=== PATIENT | male | born 1950 | race Caucasian/White ===

== ENCOUNTER 2019-12-21 23:53 | Inpatient (IN) | payer MEDICARE, OTHER ==
[~2019-12-21] VITALS: Ht 160 cm; Wt 71.3 kg
[~2019-12-21 23:53] MED LIST: CEFTIN500 MG PO; IPRATROPIUM BROM3 M1 IH; NICODERM C14 MG/PATC TD; PRINZIDE 12.5 M1 TA1 PO; VALIUM 5MG T5 MG/TAB PO; ZOCOR 40MG40 MG PO
[2019-12-22] VITALS (167 sets, daily range): BP systolic 103–139; BP diastolic 55–85; PULSE 90–105; TEMP 97.5–99; O2SAT 79–100
--- NOTE | 2019-12-22 00:31 | NUR ---
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 AWAITING ARRIVAL OF PT TO ICU 5.
--- NOTE | 2019-12-22 01:25 | NUR ---
PT ARRIVES BY EMS ON [facility]. TRANSFERED TO ICU BED. PT ON RA. PT REQUESTS TO USE BSC, X2 ASSIST, NOTEABLE WEAKNESS. PLACED ON BEDSIDE CONTINUOUS MONITOR. CALL LIGHT EDUCATION GIVEN, VERBALIZED UNDERSTANDING. PT ASSISTED INTO BED. NOTED WITH MOVEMENT PT STARTS HAVING BRIGHT RED BLOOD COMING FROM RECTUM. JEFFREY FRANKLIN NOTIFIED.
[2019-12-22] MEDS ORDERED: LACTULOSE10 GM/153 PO (01:43)
[2019-12-22] MEDS ORDERED: LASIX 40MG TABL40 MG PO (01:44)
[2019-12-22] MEDS ORDERED: K-DUR20 MEQ PO (01:45)
--- NOTE | 2019-12-22 02:15 | NUR ---
JEFFREY FRANKLIN AT BEDSIDE FOR ASSESSMENT AND TO DISCUSS POC WITH PT.
[2019-12-22 03:08] LABS: COLLECTION METHOD CLEAN CATCH
[2019-12-22 03:16] LABS: HEMATOCRIT 24.8 % (42.0-52.0); HEMOGLOBIN 8.8 g/dl (13.5-18.0)
[2019-12-22 03:29] LABS: ALCOHOL(ethanol),MEDICAL < 10 mg/dL; PHOSPHOROUS 4.1 mg/dL (2.5-4.5)
[2019-12-22 03:32] LABS: TRICYCLIC ANTIDEPRESS URINE NEGATIVE
[2019-12-22 03:43] LABS: HYALINE CAST >12 /lpf; MUCOUS Present /lpf; PH 5 (5-8); SQUAMOUS EPITHELIAL None Seen /hpf; URINE APPEARANCE Hazy; URINE BACTERIA None Seen /hpf; URINE BILIRUBIN Positive (NEGATIVE); URINE BLOOD Negative (NEGATIVE); URINE COLOR Amber; URINE GLUCOSE Negative (NEGATIVE); URINE KETONE Negative (NEGATIVE); URINE LEUKOCYTE ESTERASE Negative (NEGATIVE); URINE NITRATE Negative (NEGATIVE); URINE PROTEIN(semi-quant) Negative (NEGATIVE); URINE RBC 0-2 /hpf; URINE UROBILINOGEN >=4.0 mg/dL (NEGATIVE)
[2019-12-22 06:28] LABS: BASO % 0.1 % (0.0-2.0); EOS % 0.1 % (0-4.0); GRAN % 82.4 % (42.2-75.2); LYMPH % 8.1 % (20.0-51.0); MEAN CELL VOLUME 114 fl (80.0-100.0); MEAN CORPUSCULAR HGB CONC 36 g/dl (33.0-37.0); MEAN PLATELET VOLUME 9.9 fl (7.4-10.4); MONO % 8.1 % (1.7-9.3); PLATELET COUNT 148 K/mm3 (130-400); RED BLOOD COUNT 2.05 M/mm3 (4.20-5.60); REDCELL DISTRIBUTION WIDTH-CV 16.4 % (11.5-14.5)
[2019-12-22 06:29] LABS: HEMATOCRIT 23.4 % (42.0-52.0); HEMOGLOBIN 8.3 g/dl (13.5-18.0); MEAN CORPUSCULAR HEMOGLOBIN 40 pg (27.0-31.0)
[2019-12-22 06:33] LABS: ALBUMIN 2.7 gm/dL (3.5-5.0); CALCIUM 7.1 mg/dL (8.4-10.2); CREATININE, serum 1.45 (0.66-1.25); MAGNESIUM 2.3 mg/dL (1.6-2.3); POTASSIUM 3.8 mmol/L (3.4-5.0); TOTAL PROTEIN 5.8 gm/dL (6.4-8.2)
[2019-12-22 08:13] LABS: INR 1.5 (0.8-3.0); PROTHROMBIN TIME 17.1 SECONDS (9.7-12.8)
--- NOTE | 2019-12-22 11:37 | NUR ---
Request for endoscopy records faxed to [facility] records.
--- NOTE | 2019-12-22 13:02 | NUR ---
Plan: Return home with Meena . Assessment: SW met with patient about plan. Patient reports that he resides in [place] with his . Patient shares that he does not have any DME use. Patient shares that he is often stiff and can not move, but declines home health services. Edgard reports that his PCP is Dr. Powell and obtains medications through [facility] on [address]. Patient reports that he is unsure on what service he will need. Patient denies having any care concerns. Patient reports that he has transportation. Action: SW offered home health care services. Patient was educated on services for in the community and at home. SW will need to continue to follow care for addtional supports.
[2019-12-22 13:13] LABS: HEMATOCRIT 23.1 % (42.0-52.0); HEMOGLOBIN 8.1 g/dl (13.5-18.0)
--- NOTE | 2019-12-22 15:31 | NUR ---
PT AND UPDATED ON TRANSFER. REPORT CALLED TO MARTY AMEZQUITA. ALL QUESTIONS ANSWERED. PT TAKEN UPSTAIRS BY WHEELCHAIR.
[2019-12-22 16:59] LABS: PROCALCITONIN 0.68 ng/mL (0.00-0.09)
--- NOTE | 2019-12-22 18:11 | NUR ---
Pt admission assessment completed, alert, oriented, roomair, jaundice eyes. Allergies and MAR reviewed. I/V line flushed without complications. No N/V/D, pain, numbness, tingling, SOB as per pt at this time. Fallen on his right arm and got bruise over. No further needs at this time.
--- NOTE | 2019-12-22 20:32 | NUR ---
Resting in bed. Assessment complete. Lungs clear. Heart sounds normal. Bowels active x4. Pulses strong throughout. No edema noted. Left knee bruising present. Right arm scabbing and abrasion present. IV right AC infusing without complications. Denies pain at this time. Patient jaundice skin and sclera. Denies needs at this time. Call light in reach.
[2019-12-22 22:04] LABS: HEMATOCRIT 25.1 % (42.0-52.0); HEMOGLOBIN 8.5 g/dl (13.5-18.0)
[2019-12-23] VITALS (10 sets, daily range): BP systolic 78–114; BP diastolic 45–82; PULSE 100–124; TEMP 96.5–98.7
--- NOTE | 2019-12-23 | NUR ---
Patient requested to go to restroom. Upon arrival in room patient IV site to right AC heavily leaking blood. IVs stopped. Patient had urgency to use restroom. Assisted to restroom. Patient sat for 10-15 minutes with watery tamela bloody stool. Assisted back to bed. VS stable. Patient denies any symtoms. Old skin tear to left elbow noticed to be bleeding. IV site checked, all connections properly attached. patient cleaned up. Contacted Aislinn ZAMORANO. Aislinn ZAMORANO seen patient. Labs ordered and lab notified. Will continue to closely monitor.
[2019-12-23 00:29] LABS: EOS % 0.1 % (0-4.0); GRAN # 10.1 (1.4-6.5); GRAN % 83.4 % (42.2-75.2); LYMPH # 0.9 (1.2-3.4); LYMPH % 7.2 % (20.0-51.0); MEAN CELL VOLUME 117 fl (80.0-100.0); MEAN CORPUSCULAR HGB CONC 35 g/dl (33.0-37.0); MEAN PLATELET VOLUME 10.2 fl (7.4-10.4); MONO # 0.9 (0.1-0.6); MONO % 7.7 % (1.7-9.3); PLATELET COUNT 158 K/mm3 (130-400); RED BLOOD COUNT 1.81 M/mm3 (4.20-5.60); REDCELL DISTRIBUTION WIDTH-CV 16.9 % (11.5-14.5)
[2019-12-23 00:38] LABS: HEMATOCRIT 21.1 % (42.0-52.0); HEMOGLOBIN 7.4 g/dl (13.5-18.0); MEAN CORPUSCULAR HEMOGLOBIN 41 pg (27.0-31.0)
[2019-12-23 00:39] LABS: ALBUMIN 2.5 gm/dL (3.5-5.0); BILIRUBIN,TOTAL 16.5 mg/dL (0.0-1.0); CALCIUM 6.9 mg/dL (8.4-10.2); CREATININE, serum 1.48 (0.66-1.25); POTASSIUM 3.4 mmol/L (3.4-5.0); TOTAL PROTEIN 5.5 gm/dL (6.4-8.2)
[2019-12-23 00:45] LABS: INR 1.6 (0.8-3.0)
[2019-12-23 00:47] LABS: PARTIAL THROMBOPLASTIN TIME 33.2 SECONDS (26.0-37.0)
--- NOTE | 2019-12-23 01:00 | NUR ---
Lab called stating patient ddimer 1329. Aislinn ZAMORANO notified. Continue to monitor at this time. No new orders.
--- NOTE | 2019-12-23 01:22 | NUR ---
Reports 7/10 back pain. Provided with PRN oxycodone. Denies other needs. Call light inreach.
--- NOTE | 2019-12-23 02:54 | NUR ---
Resting in bed asleep. No obvious signs of discomfort.
--- NOTE | 2019-12-23 04:08 | NUR ---
Resting in bed. Denies needs. Call light in reach.
--- NOTE | 2019-12-23 06:16 | NUR ---
Patient had x1 bloody stool with episode of IV bleeding. Otherwise uneventful night. Received x1 dose of oxycodone during night. Resting in bed. Call light in reach.
[2019-12-23 06:28] LABS: MEAN CELL VOLUME 119 fl (80.0-100.0); MEAN CORPUSCULAR HGB CONC 35 g/dl (33.0-37.0); PLATELET COUNT 165 K/mm3 (130-400); RED BLOOD COUNT 1.79 M/mm3 (4.20-5.60); REDCELL DISTRIBUTION WIDTH-CV 16.9 % (11.5-14.5)
[2019-12-23 06:38] LABS: INR 1.6 (0.8-3.0); PROTHROMBIN TIME 18.4 SECONDS (9.7-12.8)
[2019-12-23 06:39] LABS: HEMATOCRIT 21.3 % (42.0-52.0); HEMOGLOBIN 7.5 g/dl (13.5-18.0); MEAN CORPUSCULAR HEMOGLOBIN 42 pg (27.0-31.0)
[2019-12-23 06:54] LABS: ALBUMIN 2.5 gm/dL (3.5-5.0); BILIRUBIN,TOTAL 16.1 mg/dL (0.0-1.0); CALCIUM 6.9 mg/dL (8.4-10.2); CREATININE, serum 1.46 (0.66-1.25); MAGNESIUM 1.9 mg/dL (1.6-2.3); POTASSIUM 3.8 mmol/L (3.4-5.0); TOTAL PROTEIN 5.5 gm/dL (6.4-8.2)
--- NOTE | 2019-12-23 06:55 | NUR ---
Report given to ALIRIO Díaz
[2019-12-23 08:27] LABS: LYMPHOCYTE 11 % (20.0-51.0); NEUTROPHILS 85 % (42.0-75.2); PLATELET ESTIMATE NORMAL (NORMAL)
[2019-12-23 08:28] LABS: ANISOCYTOSIS 1+; HYPOCHROMIA 1+
--- NOTE | 2019-12-23 15:30 | NUR ---
THIAGO Bray helped pt to bathroom. This nurse and ALIRIO Espinoza orientee in to assist pt back to bed. Pt had episode of diarrhea and bright red blood filled toilet. pt stated he "felt ok", pt appeared weak. This nurse notified, JUAN JOSE Castaneda who came to assess patient and MD Prieto also notified. EGD continued for tomorrow plan. Vitals obtained, pt stable, back in bed. at bedside. No further needs.
[2019-12-23 15:32] LABS: HEMATOCRIT 21.3 % (42.0-52.0); HEMOGLOBIN 7.2 g/dl (13.5-18.0)
--- NOTE | 2019-12-23 17:07 | NUR ---
THIAGO Bray informed this nurse of pt low BP for 1600 vitals, pt sleeping at that time. This nurse rechecked, BP was 97/65, pt a little more awake. JUAN JOSE Castaneda notified and aware of all BPs.
--- NOTE | 2019-12-23 19:30 | NUR ---
Pt assesment completed, charted, alert, oriented, roomair. Meds provided as per SEP. I/V flushed without complications. Helped pt to go to the restroom and when pt called after he finished noticed large amount of blood on commode and also over the floor. Called JUAN JOSE Castaneda, came and assessed him, placed order for colonescopy and bowel perp started. Pt has been sleeping but encouraged to get up and drink the perp in between. Checked vitals sign after the bleeding episode, was stable at the time. No N/V/D, numbness, tingling, sob as per pt. Has no further needs at this time.
--- NOTE | 2019-12-23 19:35 | NUR ---
Received report from Bre. Seen patient awake, lying in bed. Jaundice noted on sclera and skin. With IV on left AC infusing NS at 75ml/hr and Octreotide. Lungs are clear. On room air. Patient on bowel preparation.
--- NOTE | 2019-12-23 20:30 | NUR ---
Patient had a bowel movement and his IV was pulled out while he stand up to go to bedside commode. Will reinsert IV but patient is a hard stick. Noted to have ecchymosis on his both upper extremities.
--- NOTE | 2019-12-23 22:00 | NUR ---
Patient had episodes of blood stool with clots. This nurse called Aislinn BULB SORTER to update her about bloody stools. She ordered to have the lab works for hemoglobin and hematocrit done now. Vital signs were taken. ZT=315/68, IK=433, Temp=97.6, RR=23 abd SPO2=90%. Informed Aislinn I will hook patient to oxygen at 2liters and she said go ahead. SPO2 went up to 99%
--- NOTE | 2019-12-23 22:30 | NUR ---
Called Aislinn to update her about hemoglobin result of 7.1. Asked her if I can still give the Lactulose and she said yes and have patient continue the bowel prep but have him poop using bedpan.
[2019-12-23 22:44] LABS: HEMATOCRIT 21.9 % (42.0-52.0); HEMOGLOBIN 7.1 g/dl (13.5-18.0)
--- NOTE | 2019-12-23 23:20 | NUR ---
This nurse tried to find a vein for IV insertion but cannot find one. Estefany charge nurse tried twice but failed. Called [facility] power house engineer to do reinsertion and she was able to insert on left AC G20.
--- NOTE | 2019-12-23 23:45 | NUR ---
Patient complains of back pain with pain score of 10/10. BP taken at 102/48. Updated Aislinn about the low blood pressure and pain and she said may give the Oxycodone but monitor the blood pressure. Patient states he wanted to have some sleep as he is already tired pooping. Lights turned off. Call light within reach. Bed alarm on.
[2019-12-24] VITALS (7 sets, daily range): BP systolic 101–144; BP diastolic 64–88; PULSE 113–118; TEMP 97.2–98
--- NOTE | 2019-12-24 02:30 | NUR ---
Patient had an episode of bloody stools again with amount of 30ml. He complains of feeling of short of air even if he's on oxygen at 2L. SPO2 at 99%. He states he still has pain on his both sides of abdomen due to straining from moving on his bed and going to the bedside commode. Called Aislinn to give her an update, she ordered Morphine if blood pressure is stable and stat hemoglobin and hematocrit. Explained to the patient that he will have a lab draw again. Bedpan was utilized this time to refrain him from exerting too much effort.
[2019-12-24 02:58] LABS: HEMATOCRIT 20.4 % (42.0-52.0); HEMOGLOBIN 6.5 g/dl (13.5-18.0)
--- NOTE | 2019-12-24 03:00 | NUR ---
This nurse called Aislinn to relay result of Hemoglobin of 6.5. She ordered to transfuse 1 unit of PRBC and recheck Hemoglobin and hematocrit 1 hour after transfusion. Explained procedure to the patient and he signed consent for blood blood transfusion.
--- NOTE | 2019-12-24 06:41 | NUR ---
Patient still had episodes of bloody stools. Still on O2 at 2lpm via NC. 1st unit of PRBC ongoing. To recheck hemoglobin and hematocrit 1 hout post BT. Patient states Morphine relieved his pain. Will endorse to day shift nurse.
[2019-12-24 07:36] LABS: MEAN CELL VOLUME 123 fl (80.0-100.0); MEAN CORPUSCULAR HGB CONC 31 g/dl (33.0-37.0); MEAN PLATELET VOLUME 10.3 fl (7.4-10.4); REDCELL DISTRIBUTION WIDTH-CV 24.1 % (11.5-14.5)
[2019-12-24 07:40] LABS: PROTHROMBIN TIME 22.7 SECONDS (9.7-12.8)
[2019-12-24 07:57] LABS: ALBUMIN 2.5 gm/dL (3.5-5.0); ALKALINE PHOSPHATASE 524 U/L (50-136); AST,SGOT 261 U/L (15-37); BLOOD UREA NITROGEN 32 mg/dL (9-20); CALCIUM 7.6 mg/dL (8.4-10.2); CHLORIDE 101 mmol/L (98-107); CREATININE, serum 2.17 (0.66-1.25); GLUCOSE 69 mg/dL (74-106); MAGNESIUM 2.1 mg/dL (1.6-2.3); POTASSIUM 4.7 mmol/L (3.4-5.0); SODIUM 130 mmol/L (137-145); TOTAL PROTEIN 5.4 gm/dL (6.4-8.2)
[2019-12-24 08:03] LABS: ALANINE AMINOTRANSFERASE 55 U/L (4-49)
[2019-12-24 08:07] LABS: CARBON DIOXIDE < 5 mmol/L (22-30)
[2019-12-24 08:26] LABS: HEMATOCRIT 24.5 % (42.0-52.0); HEMOGLOBIN 7.6 g/dl (13.5-18.0); MEAN CORPUSCULAR HEMOGLOBIN 38 pg (27.0-31.0); PLATELET COUNT 267 K/mm3 (130-400)
--- NOTE | 2019-12-24 08:56 | NUR ---
Call placed to Candice Scott @ 0815 regarding her condition of no pulse; respirations at this time. is alone but will get friend to drive her to the hospital. Structural Drafter and [facility] services paged overhead for assistance with calls/ect. Dr. Fisher's office called to make aware of patients . [facility] made aware of patients , reviewed history/physical and lab results. Patient is not a candidate due to being unable to determine source of bleed; and the CT showing possibly having mass. Patient confirmation number [id number]. Structural Drafter made aware of the not being a candidate for donation. She will address with family home and if autopsy is requested.
[2019-12-24 10:58] LABS: BAND 16 % (0-10); BASOPHIL 1 % (0-2); LYMPHOCYTE 4 % (20.0-51.0); METAMYELOCYTE 2 % (0-0); MYELOCYTE 3 % (0-0); NEUTROPHILS 70 % (42.0-75.2); NUCLEATED RED BLOOD CELL 5 (0-6)
[2019-12-24 11:01] LABS: ANISOCYTOSIS 2+; BURR CELLS 2+
[2019-12-24 11:02] LABS: PLATELET ESTIMATE NORMAL (NORMAL)
--- NOTE | 2019-12-24 11:05 | NUR ---
Clerk Travel Reservations was notified of patient's . Security Dispatcher notified patient's , Meena (ph#[phone]). Per Security Dispatcher, [facility] was notified and patient not a candidate. PAUL met with Meena and her brother and provided emotional support. Meena would like to use [facility] in [place]. Meena declined requesting an autopsy. Meena and her brother left to go to the [place] [facility]. 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 No additional needs at this time.
--- NOTE | 2019-12-24 11:33 | NUR ---
public health social worker was contacted by patient's daughter, Nayeli Mcguire [phone], who is adoption services manager with the [employer]. Nayeli requested a [employer] notification. Worker contacted [employer] and gave notification case # [id number]. Nayeli stated that her sister, Bailey Scott, who is also in the , already has a [employer] request.
--- NOTE | 2019-12-24 12:24 | NUR ---
Received report from Marily. Patient was observed to be laying in bed on right side in a position. Linens were soiled and patient had urinated in the bed. He had removed the bedpan which was sitting on the bed next to him. Marily and I changed the linens and provided pericare. Patient was adjusted in the bed. Blood transfusion continued to infuse. Rate increased. 0750 I did enter patients room to check on status of transfusion which was complete. Patient was sitting on side of the bed attempting to get up to go to the bathroom. He stood up and would not wait for assistance to ambulate to bathroom. He was unsteady and reaching for doorway for balance. IV tubing was being pulled as I was trying to unplug the pumps. I did set pump to flush blood tubing as he sat on the toilet. It sounded as if he urinated which was a long period of time. I did lean patient foreward to check the toilet and he was bleeding from rectum at a steady stream. I did sit patient back where he slumped against the wall and became unresponsve at 0805. Sternal rub was ineffective. Did have faint carotid pulse. I did have SHAREPOINT SPECIALIST call for charge nurse who immediately called for warehouse shipping supervisor at [phone]. CAT call was called at [phone]. Patient was taken off the toilet and gotten up to bed at 0810. Upon getting patient onto bed, he did not have a pulse and agonal breathing was observed. Patient was cleaned, sheets changed and brief was applied. Patient was at 0822. shelter supervisor notified family.
[2019-12-25 03:23] LABS: FOLATE (FOLIC ACID) 2.6 ng/mL (>=4.0)
[2019-12-25 08:47] LABS: PATHOLOGY DIFF REVIEW OK
== END 2019-12-24 11:15 | disposition expired | DRG 394 ==
LOC: MEDICAL 12-22 01:30 → ICU 12-22 01:30 → MEDICAL 12-22 16:27 → IMCU 12-22 23:53 → MEDICAL 12-24 11:15
PROVIDERS: Internal Medicine Gastroenterology; Nurse Practitioner Family; Physician Assistant; ADMIT Internal Medicine
DX: K64.5 Perianal venous thrombosis (principal); N17.9 Acute kidney failure, unspecified; E87.1 Hypo-osmolality and hyponatremia; R65.10 Systemic inflammatory response syndrome (SIRS) of non-infectious origin without acute organ dysfunction; E44.0 Moderate protein-calorie malnutrition; K76.6 Portal hypertension; K70.31 Alcoholic cirrhosis of liver with ascites; K70.11 Alcoholic hepatitis with ascites; Z66 Do not resuscitate; D53.9 Nutritional anemia, unspecified; F10.10 Alcohol abuse, uncomplicated; I12.9 Hypertensive chronic kidney disease with stage 1 through stage 4 chronic kidney disease, or unspecified chronic kidney disease; N18.9 Chronic kidney disease, unspecified; E87.6 Hypokalemia; E83.42 Hypomagnesemia; E83.51 Hypocalcemia; E78.5 Hyperlipidemia, unspecified; Z87.891 Personal history of nicotine dependence
CPT/HCPCS: 99223-AI; 99232-AI; 99238; C9113; J0610; J2270; J2354; J3475; J3480; J7030; J7040; P9016